=== PATIENT | male | born 1990 | race African-American/Black ===

== ENCOUNTER 2019-09-04 10:24 | Emergency (ER) | payer MEDICAID ==
[~2019-09-04] VITALS: Ht 185.4 cm; Wt 96.0 kg
[2019-09-04] MEDS ORDERED: IBUPROFEN 600MG TABLET PO ONE (11:30)
[2019-09-04 16:03] VITALS: BP 149/91
== END 2019-09-04 16:19 | disposition home or self-care (01) ==
LOC: ER 10:24
DX: M25.571 Pain in right ankle and joints of right foot (principal)
CPT/HCPCS: 29515; 73610; 73700; 99284; Z7610